=== PATIENT | female | born 1950 | race Caucasian/White ===

== ENCOUNTER → 2023-12-03 10:02 | Outpatient (REF) | payer MEDICARE, SELFPAY | LOC: DHCBC MAIN 10:02 | PROVIDERS: ATTENDING PHYSICIAN Internal Medicine Cardiovascular Disease; FAMILY PHYSICIAN Family Medicine | DX: I47.19 Other supraventricular tachycardia (principal) | CPT/HCPCS: 93306 ==

== ENCOUNTER → 2024-05-03 13:22 | Outpatient (REF) | payer MEDICARE, SELFPAY | LOC: WDC 13:22 | PROVIDERS: ATTENDING PHYSICIAN Family Medicine | DX: Z12.31 Encounter for screening mammogram for malignant neoplasm of breast (principal) | CPT/HCPCS: 77063; 77067 ==